=== PATIENT | female | born 1970 | race Caucasian/White ===

== ENCOUNTER → 2024-10-29 11:22 | Day surgery (SDC) | payer OTHER, SELFPAY ==
[2024-10-29 11:43] VITALS: BMI 23.9
[2024-10-29 11:56] VITALS: BP 209/110; PULSE 77; RESP 19; TEMP 36.5; O2SAT 98
--- NOTE | 2024-10-29 12:24 | PC.NURSE ---
Addendum entered by Maria Luz Barker RN 10/29/24 12:31: Pt education given on importance of being seen in ER due to blood pressure being extremely high, pt declined treatment at this time. pt states i will just follow up with Dr. vargas' encouraged pt to please go to the er and pt declined. 12:00. Pt ambulated herself to vehicle. Original Note: pt blood pressure upon arrival 209/110, notified Dr. Regan, retake blood pressure 259/99. Pt spoke with Dr. Larkin and Dr. Regan, pt procedure canceled.
== END ==
LOC: OR 11:27
PROVIDERS: PCP Family Medicine; Visit Provider Podiatrist Foot & Ankle Surgery
PROC: (CPT 11750; principal; 2024-10-29 12:40)
DX: Z53.8 Procedure and treatment not carried out for other reasons (principal)

== ENCOUNTER 2024-10-29 12:38 | Emergency (ER) | payer OTHER, SELFPAY ==
[2024-10-29] VITALS (9 sets, daily range): BP systolic 141–248; BP diastolic 87–142; PULSE 71–89; RESP 16–18; TEMP 36.7; O2SAT 91–97; BMI 28.3
--- NOTE | 2024-10-29 12:52 | XR_ITS ---
WS: [id number] Exam: XR chest 1V portable [id number] Date/Time of Exam: 10/29/2024 12:53 PM Reason For Exam: hypertension No priors. Lungs are clear and fully inflated. Normal cardiomediastinal silhouette for technique. No pleural effusions. Bony structures are intact. XR/XR chest 1V portable [id number] IMPRESSION: 1. No acute cardiopulmonary finding.
--- NOTE | 2024-10-29 12:52 | ED_ITS ---
HPI - General Adult 2 General: Chief complaint: General Medical Stated complaint: high BP/tingling in face and arms Time Seen by Provider: 10/29/24 12:49 History of Present Illness: 54-year-old female with a known history of hypertension who has opted not to take her medications who presents emergency room with hypertension. She had been very anxious and not sleeping well because she was having her toenails removed in Dr. Larkin's office today. When she went there for the procedure they found that her blood pressure was very elevated and so they told her she needed to go to the emergency room for evaluation. She said she has been having a little tingling in her face. No chest pain. No altered mental status. No focal motor deficits. No nausea or vomiting. No abdominal pain. No lower extremity swelling Related Data Previous Rx's ?Medication ?Instructions ?Recorded cefdinir 300 mg capsule 300 mg PO BID 5 days #10 cap s 10/29/24 clonidine HCl 0.1 mg tablet 0.1 mg PO Q8H PRN hyperten sive 10/29/24 emergency #20 tabs lisinopril 20 1 tab PO DAILY #30 tabs 10/19 08/14 mg-hydrochlorothiazide 25 mg tablet Allergies Allergy/AdvReac Type Severity Reaction Status Date / Time aspirin Allergy ADR-Dizzine Verified 10/29/24 13:44 ss Review of Systems 2 Narrative: Constitutional symptoms: Negative except as documented in HPI. Skin symptoms: Negative except as documented in HPI. Eye symptoms: Negative except as documented in HPI. ENMT symptoms: Negative except as documented in HPI. Respiratory symptoms: Negative except as documented in HPI. Cardiovascular symptoms: Negative except as documented in HPI. Gastrointestinal symptoms: Negative except as documented in HPI. Genitourinary symptoms: Negative except as documented in HPI. Musculoskeletal symptoms: Negative except as documented in HPI. Neurologic symptoms: Negative except as documented in HPI. Psychiatric symptoms: Negative except as documented in HPI. Endocrine symptoms: Negative except as documented in HPI. PFSH ED 2 PFSH: Social History Smoking and tobacco/nicotine status: current every day tobacco/nicotine user cigarettes Packs smoked per day: 1 Years cigarettes smoked: 40 [ Other cigarette details: sometimes more than 20] Second hand smoke exposure: Yes Alcohol intake: current Alcohol intake frequency: holidays/special occasions only Alcohol type: beer Substance/Drug Use: never Physical Exam 2 Narrative: EXAM NARRATIVE: General: Alert, no acute distress. Skin: Warm, dry. Head: Normocephalic, atraumatic. Neck: Supple, trachea midline. Eye: Extraocular movements are intact. Ears, nose, mouth and throat: mucosa moist. Cardiovascular: Regular, Normal peripheral perfusion. Respiratory: Lungs are clear to auscultation, respirations are non-labored, breath sounds are equal, Symmetrical chest wall expansion. Gastrointestinal: Soft, Nontender, Non distended Musculoskeletal: Normal ROM, no deformity. Neurological: Alert and oriented, No focal neurological deficit observed. Psychiatric: Cooperative, appropriate mood & affect. Course 2 Vital Signs: Vital signs: Vital Signs Temperature 98.1 F 10/29/24 12:41 Pulse Rate 75 10/29/24 16:00 Respiratory Rate 18 10/29/24 14:46 Blood Pressure 141/87 10/29/24 16:00 Pulse Oximetry 94 10/29/24 16:00 Oxygen Delivery Me thod Room Air 10/29/24 16:00 MDM - General Adult Medical Decision Making Medical decision making: Differential diagnosis including but not limited to and based on the above HPI, review of systems and physical exam: Patient presents with hypertension: Essential hypertension. Stroke. acute coronary syndrome. kidney failure. congestive heart failure. anxiety Orders placed to evaluate differential diagnosis based on the above differential, HPI and physical exam EKG: Time 1309. Rate 77. Normal sinus rhythm, No ST-T changes, no ectopy, normal MI & QRS intervals, This was reviewed and interpreted by myself the ER physician at 1315. EKG: Time 1510. Rate 68 normal sinus rhythm, No ST-T changes, no ectopy, normal MI & QRS intervals, This was reviewed and interpreted by myself the ER physician at 1515 Chest x-ray: No acute process. No infiltrate. No pneumothorax. This was reviewed and interpreted by myself the emergency room physician. I also reviewed the radiology report. Lab Review: Laboratory results were reviewed and interpreted by myself the emergency room physician. No leukocytosis. No anemia. No renal failure. Mild urinary tract infection. Cardiac markers are negative. I reviewed the patient's medical record. Reexamination: Patient says she feels much better after blood pressure treatment. She improved with clonidine. No longer having a chest discomfort. Talked at length with her and her family about the issues with blood pressure and her need to take her meds. Assessment and plan: Accelerated hypertension Urinary tract infection ?P.o. lisinopril. P.o. clonidine. IV Rocephin. - Discharged home - Discussed plan with patient. Answered any questions. - Evaluation and treatment of this problem were appropriate in the emergency setting. Lab Data 10/29/24 14:07 10/29/24 14:07 Radiology Impressions Chest X-Ray 10/29/24 12:52 IMPRESSION: 1. No acute cardiopulmonary finding. Laboratory Results WBC 7.98 10^3/uL (3.29-11.43) 10/29/24 14:07 RBC 5.32 10^6/uL (3.85-5.65) 10/29/24 14:07 Hgb 15.70 g/dL (11.27-16.99) 10/29/24 14:07 Hct 47.5 % (36-47) H 10/29/24 14:07 MCV 89.3 fl (85-98) 10/29/24 14:07 MCH 29.5 pg (27-33) 10/29/24 14:07 MCHC 33.1 g/dL (30-55) 10/29/24 14:07 RDW 12.7 % (12.1-15.1) 10/29/24 14:07 Plt Count 217 10^3/cmm (157-399) 10/29/24 14:07 MPV 9.8 fL (7.4-10.4) 10/29/24 14:07 Neut % (Auto) 60.1 % 10/29/24 14:07 Lymph % (Auto) 31.8 % 10/29/24 14:07 Reynolds % (Auto) 5.5 % 10/29/24 14:07 Eos % (Auto) 1.5 % 10/29/24 14:07 Baso % (Auto) 0.8 % 10/29/24 14:07 Neut # (Auto) 4.80 10^3/uL (1.8-7.7) 10/29/24 14:07 Lymph # (Auto) 2.5 10^3/uL (0.8-4.8) 10/29/24 14:07 Reynolds # (Auto) 0.4 10^3/uL (0.2-0.9) 10/29/24 14:07 Eos # (Auto) 0.1 10^3/uL (0.0-0.8) 10/29/24 14:07 Baso # (Auto) 0.1 10^3/uL (0.0-0.1) 10/29/24 14:07 Nucleated RBC % (auto) 0 % 10/29/24 14:07 Nucleated RBCs # 0.0 /100WBC 10/29/24 14:07 Sodium 137 mmol/L (136-145) 10/29/24 14:07 Potassium 4.2 mmol/L (3.5-5.1) 10/29/24 14:07 Chloride 102 mmol/L (98-107) 10/29/24 14:07 Carbon Dioxide 25 mmol/L (22-29) 10/29/24 14:07 Anion Gap 14.2 (5-19) 10/29/24 14:07 BUN 11 mg/dL (6-20) 10/29/24 14:07 Creatinine 0.5 mg/dL (0.5-0.9) 10/29/24 14:07 GFR Calculation 128.6 mL/min (90-130) 10/29/24 14:07 Glucose 101 mg/dL (65-115) 10/29/24 14:07 Calculated Osmolality 284 mOsm/kg (285-295) L 10/29/24 14:07 Calcium 9.7 mg/dL (8.5-10.5) 10/29/24 14:07 Total Bilirubin 0.4 mg/dL (0.15-1.2) 10/29/24 14:07 AST 21 U/L (0-32) 10/29/24 14:07 ALT 26 U/L (0-33) 10/29/24 14:07 Alkaline Phosphatase 104 U/L (35-105) 10/29/24 14:07 Troponin T Baseline < 6 ng/L (0-10) 10/29/24 14:07 NT-Pro-B Natriuret Pep 86 pg/mL (0-125) 10/29/24 14:07 Total Protein 7.5 g/dL (6.6-8.7) 10/29/24 14:07 Albumin 4.8 g/dL (3.5-5.2) 10/29/24 14:07 Globulin 2.7 g/dL (1.3-4.6) 10/29/24 14:07 Urine Color Yellow (Yellow) 10/29/24 13:35 Urine Appearance Clear (CLEAR) 10/29/24 13:35 Urine pH 7 (5-7) 10/29/24 13:35 Ur Specific [place] 1.005 (1.005-1.030) 10/29/24 13:35 Urine Protein Neg (Negative) 10/29/24 13:35 Urine Glucose (UA) Norm (Normal) 10/29/24 13:35 Urine Ketones Negative (Negative) 10/29/24 13:35 Urine Blood Neg (Negative) 10/29/24 13:35 Urine Nitrate Negative (Negative) 10/29/24 13:35 Urine Bilirubin Neg (Negative) 10/29/24 13:35 Urine Urobilinogen Neg mg/dL (Negative) 10/29/24 13:35 Ur Leukocyte Esterase Trace (Negative) H 10/29/24 13:35 Urine RBC 0-2 /hpf (0-2) 10/29/24 13:35 Urine WBC 11-20 /hpf (0-5) H 10/29/24 13:35 Ur Squamous Epith Cells 0-5 /hpf (0-5) 10/29/24 13:35 Amorphous Sediment Not Reportable 10/29/24 13:35 Urine Bacteria None seen /hpf (NONE) 10/29/24 13:35 Hyaline Casts 0-4 /lpf H 10/29/24 13:35 All radiology interpretation(s) finalized by discharge Discharge Plan Discharge Patient Disposition: Home Clinical Impression: Accelerated hypertension, Urinary tract infection Condition: Stable Prescriptions: New clonidine HCl 0.1 mg tablet 0.1 mg PO Q8H PRN (Reason: hypertensive emergency) Qty: 20 0RF Rx Instructions: For Systolic >185 diastolic >100 cefdinir 300 mg capsule 300 mg PO BID 5 Days Qty: 10 0RF lisinopril-hydrochlorothiazide 20-25 mg tablet 1 tab PO DAILY Qty: 30 1RF Discharge Orders: Discharge ED (Routine); Ordered 10/29/24 Ordered By: Sayda Mendez Referrals: Jam Jamil MD [Primary Care Provider] - Discharge Diet: Usual diet Discharge Activity: Increase activity as tolerated Patient Instructions: Hypertension (ED), Opioid Safety, Pain Management Activity Restrictions/Additional Instructions: Thank you for choosing [facility] for your healthcare needs today. Please realize this is an emergency room and that we are providing you with a medical screening exam and this may not be complete and all inclusive of all the testing and or work up that you may need to determine your ailment or severity of your illness. You have been screened and evaluated and felt safe for discharge. Health conditions do change or evolve sometimes and as such it is important that you follow up with your Primary Doctor to be re checked, 3-5 days is a general good time frame for follow up. You are always welcome to return to the ED for re assessment if your symptoms are worsening or you have new concerns Print Language: Luxembourger Coding Level of Care Code ED New Car Driver for Gina Jose
--- NOTE | 2024-10-29 13:09 | ECG_ITS ---
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 Measurements Intervals [place] Rate: 77 P: 48 PA: 157 QRS: 29 QRSD: 84 T: 74 QT: 360 QTc: 408 Interpretive Statements SINUS RHYTHM No previous ECG available for comparison Electronically Signed On 10-30-2024 13:08:30 CDT by Tyrone Hare M.D. [email or web address]
--- NOTE | 2024-10-29 13:40 | PC.NURSE ---
this nurse assumed pt care at 1300.
[2024-10-29 13:59] LABS: Urine Appearance Clear (CLEAR); Urine Color Yellow (Yellow)
[2024-10-29 14:00] LABS: Bilirubin Urine Neg (Negative); Blood Urine Neg (Negative); Glucose Urine UA Norm (Normal); Ketones Urine Negative (Negative); Leukocyte Esterase Urine Trace (Negative); Nitrate Urine Negative (Negative); Protein Urine Neg (Negative); Specific Gravity, Urine 1.005 (1.005-1.030); Urobilinogen Urine Neg (Negative); pH Urine 7 (5-7)
[2024-10-29 14:04] LABS: Bacteria Urine None Seen /hpf; Hyaline Casts Urine 0-4 /lpf; RBC Urine 0-2 /hpf (0-2); Squamous Epithelial Cell Urine 0-5 /hpf (0-5)
[2024-10-29 14:06] LABS: Add Urine Culture? No
[2024-10-29 14:11] LABS: Basophils # 0.1 10^3/uL (0.0-0.1); Basophils % 0.8 %; Eosinophils # 0.1 10^3/uL (0.0-0.8); Eosinophils % 1.5 %; Hematocrit 47.5 % (36-47); Lymphocytes # 2.5 10^3/uL (0.8-4.8); Lymphocytes % 31.8 %; Mean Corpuscular HGB Conc 33.1 g/dL (30-55); Mean Corpuscular Hemoglobin 29.5 pg (27-33); Mean Corpuscular Volume 89.3 fl (85-98); Mean Platelet Volume 9.8 fL (7.4-10.4); Monocytes # 0.4 10^3/uL (0.2-0.9); Monocytes % 5.5 %; Neutrophils % 60.1 %; Nucleated Red Blood Cells % 0 %; Platelet Count 217 10^3/cmm (157-399); Red Blood Count 5.32 10^6/uL (3.85-5.65); Red Cell Distribution Width 12.7 % (12.1-15.1); White Blood Count 7.98 10^3/uL (3.29-11.43)
[2024-10-29] MEDS: cefTRIAXone 1,000 mg SDV 1000 MG IVP (14:25)
[2024-10-29] MEDS: lisinopril 20 mg Tablet PO (14:25)
[2024-10-29] MEDS: cloNIDine 0.1 mg Tablet PO (14:25)
[2024-10-29 14:35] LABS: Troponin(5th) Baseline < 6 ng/L (0-10)
[2024-10-29 14:50] LABS: Alanine Aminotransferase 26 U/L (0-33); Albumin Level 4.8 g/dL (3.5-5.2); Alkaline Phosphatase 104 U/L (35-105); Anion Gap 14.2 (5-19); Aspartate Amino Transferase 21 U/L (0-32); Blood Urea Nitrogen 11 mg/dL (6-20); Calcium 9.7 mg/dL (8.5-10.5); Carbon Dioxide 25 mmol/L (22-29); Chloride 102 mmol/L (98-107); Creatinine Clr Calc Pharmacy 122.7877; Globulin 2.7 g/dL (1.3-4.6); Glomerular Filtration Rate 128.6 mL/min (90-130); Glucose 101 mg/dL (65-115); NT Pro B Type Natriuretic Pept 86 pg/mL (0-125); Osmolality Calculated 284 mOsm/kg (285-295); Potassium 4.2 mmol/L (3.5-5.1); Sodium 137 mmol/L (136-145); Total Bilirubin 0.4 mg/dL (0.15-1.2); Total Protein 7.5 g/dL (6.6-8.7)
--- NOTE | 2024-10-29 14:51 | ECG_ITS ---
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 Measurements Intervals [place] Rate: 68 P: 76 TN: 157 QRS: 21 QRSD: 89 T: 127 QT: 396 QTc: 424 Interpretive Statements SINUS RHYTHM POSSIBLE LEFT ATRIAL ENLARGEMENT [-0.1mV P-WAVE IN V1/V2] MINIMAL ST DEPRESSION [0.025+ mV ST DEPRESSION] ABNORMAL QRS-T ANGLE [QRS-T AXIS DIFFERENCE > 60] Compared to ECG 10/29/2024 13:09:05 ST (T wave) deviation now present Electronically Signed On 10-30-2024 13:19:10 CDT by Tyrone Hare M.D. [email or web address]
== END 2024-10-29 16:29 | disposition home or self-care (01) ==
PROVIDERS: Emergency Provider Emergency Medicine; PCP Family Medicine
DX: I10 Essential (primary) hypertension (principal); N39.0 Urinary tract infection, site not specified; F17.210 Nicotine dependence, cigarettes, uncomplicated
CPT/HCPCS: 36415; 71045; 80053; 81001; 83880; 84484; 85025; 93005; 96374; 99285; J0696; J9999

== ENCOUNTER → 2024-12-15 12:19 | Outpatient (BNVA) | payer OTHER, SELFPAY | PROVIDERS: PCP Family Medicine; Visit Provider Nurse Practitioner Women's Health | DX: Z12.4 Encounter for screening for malignant neoplasm of cervix (principal) | CPT/HCPCS: 87624 ==

== ENCOUNTER → 2025-01-03 09:32 | Outpatient (BNVA) | payer OTHER, SELFPAY | PROVIDERS: PCP Family Medicine; Visit Provider Family Medicine | DX: R30.0 Dysuria (principal) | CPT/HCPCS: 81000; 87077; 87086; 87184 ==